=== PATIENT | female | born 1985 | race Caucasian/White ===

== ENCOUNTER 2017-02-17 16:47 | Emergency (ER) | payer OTHER ==
[~2017-02-17] VITALS: Ht 170.2 cm; Wt 88.9 kg
[2017-02-17 20:53] VITALS: BP 128/89
== END 2017-02-17 20:53 | disposition home or self-care (01) ==
LOC: ED 16:47
DX: S60.212A Contusion of left wrist, initial encounter (principal); S60.211A Contusion of right wrist, initial encounter; S80.01XA Contusion of right knee, initial encounter; W19.XXXA Unspecified fall, initial encounter; Y93.89 Activity, other specified; Y92.89 Other specified places as the place of occurrence of the external cause; Y99.8 Other external cause status

== ENCOUNTER 2017-08-30 02:46 | Emergency (ER) | payer OTHER ==
[~2017-08-30] VITALS: Ht 167.6 cm; Wt 74.4 kg
[2017-08-30 02:50] VITALS: Ht 167.6 cm; Wt 74.4 kg
[2017-08-30 04:48] VITALS: BP 139/94
== END 2017-08-30 04:48 | disposition home or self-care (01) ==
LOC: ED 02:46
DX: K08.89 Other specified disorders of teeth and supporting structures (principal); K01.1 Impacted teeth
CPT/HCPCS: J1885

== ENCOUNTER 2018-02-19 10:33 | Emergency (ER) | payer OTHER ==
[~2018-02-19] VITALS: Ht 170.2 cm; Wt 71.2 kg
[2018-02-19 10:44] VITALS: Ht 170.2 cm; Wt 71.2 kg
[2018-02-19 11:19] LABS: CALCIUM 9.9 mg/dL (8.5-10.1); CARBON DIOXIDE 22.7 mmol/L (21-32); CHLORIDE SERUM 102 mmol/L (98-107); CREATININE SERUM 1.1 mg/dL (0.6-1.0); GFR1 > 60 mL/min; GLUCOSE SERUM 107 mg/dL (74-106); POTASSIUM SERUM 3.3 mmol/L (3.5-5.1); SODIUM SERUM 138 mmol/L (136-145)
[2018-02-19 11:24] LABS: ALBUMIN 4.3 g/dL (3.4-5.0); ALKALINE PHOSPHATASE 97 U/L (46-116); ALT/SGPT 23 U/L (14-59); AST/SGOT 16 U/L (15-37); BILIRUBIN TOTAL 0.9 mg/dL (0.20-1.00)
[2018-02-19 11:26] LABS: TOTAL PROTEIN, SERUM 8.5 g/dL (6.4-8.2)
[2018-02-19 11:30] LABS: BASOPHIL % 0.3 % (0-2); PLATELET COUNT 340 x10^3mcL (130-400); RED CELL DISTRIBUTION WIDTH 16.5 % (11.5-14.5)
[2018-02-19 11:52] LABS: AMPHETAMINE QUAL UR POSITIVE (See below)
[2018-02-19 12:58] VITALS: BP 128/90
== END 2018-02-19 12:58 | disposition home or self-care (01) ==
LOC: ED 10:33
PROVIDERS: Emergency Medicine
DX: F15.10 Other stimulant abuse, uncomplicated (principal); R06.02 Shortness of breath; R06.4 Hyperventilation; F17.210 Nicotine dependence, cigarettes, uncomplicated; Z90.89 Acquired absence of other organs; Z86.19 Personal history of other infectious and parasitic diseases
CPT/HCPCS: 36415; 36600; 99406